=== PATIENT | male | born 1950 | race Caucasian/White ===

== ENCOUNTER 2020-08-26 03:28 | Emergency (ER) | payer MEDICARE, BC ==
[2020-08-26] MEDS ORDERED: Morphine 4 MG/ML Syringe IM ONE (03:42)
[2020-08-26] MEDS ORDERED: Morphine 4 MG/ML Syringe ONE (03:43)
--- NOTE | 2020-08-26 03:50 | EDM.PDOC ---
ED HPI GENERAL MEDICAL PROBLEM - General Chief Complaint: Genitourinary Problem Stated Complaint: urinary retention Time Seen by Provider: 08/26/20 03:35 Source of Information: Reports: Patient History Limitations: Reports: No Limitations - History of Present Illness INITIAL COMMENTS - FREE TEXT/NARRATIVE: Pt with urinary retention for past 3 hours Was able to void some urine but now cannot Has hx/o BPH and urinary issues in past On Flomax No fever No trauma No new meds Onset: Gradual Duration: Hour(s):, Getting Worse Location: Reports: Abdomen Bladder Pain Score (Numeric/FACES): 8 - Related Data Allergies Allergy/AdvReac Type Severity Reaction Status Date / Time No Known Drug Allergies Allergy Other Verified 08/26/20 03:29 Past Medical History Genitourinary History: Reports: Prostate Disorder, Retention, Urinary - Infectious Disease History Infectious Disease History: Reports: Chicken Pox, Measles, Mumps, Pertussis (Whooping Cough), Rubella - Past Surgical History Male Surgical History: Reports: Prostate Biopsy Musculoskeletal Surgical History: Reports: Hip Replacement, Other (See Below) Other Musculoskeletal Surgeries/Procedures:: bilateral hips replaced Social & Family History - Tobacco Use Smoking Status *Q: Never Smoker - Caffeine Use Caffeine Use: Reports: Coffee - Alcohol Use Days Per Week of Alcohol Use: 7 Number of Drinks Per Day: 3 Total Drinks Per Week: 21 - Recreational Drug Use Recreational Drug Use: No ED ROS GENERAL - Review of Systems Review Of Systems: See Below : Reports: Urinary Retention ED EXAM, RENAL/ - Physical Exam Exam: See Below General Appearance: Alert, WD/WN GI/Abdominal: Tender (Male) Exam: Suprapubic Fullness Course - Vital Signs Last Recorded V/S: Last Vital Signs Temp 98.7 F 08/26/20 03:31 Pulse 101 H 08/26/20 03:31 Resp 14 08/26/20 03:31 BP 216/112 H 08/26/20 03:31 Pulse Ox 100 08/26/20 03:31 - Re-Assessments/Exams Free Text/Narrative Re-Assessment/Exam: 08/26/20 03:47 Bladder scan > [address] urinary catheter D/W Dr Jasvir Moran [facility] Will accept in transfer Pt given Morphine 4 mg IM in ER Departure - Departure Time of Disposition: 03:50 Disposition: Home, Self-Care 01 Clinical Impression: Retention of urine - Discharge Information *PRESCRIPTION DRUG MONITORING PROGRAM REVIEWED*: Not Applicable *COPY OF PRESCRIPTION DRUG MONITORING REPORT IN PATIENT BALA: Not Applicable Instructions: Acute Urinary Retention, Male Additional Instructions: To [facility] ER via private vehicle Sepsis Event Note (ED) - Evaluation Sepsis Screening Result: No Definite Risk - Focused Exam Vital Signs: Vital Signs Temp Pulse Resp BP Pulse Ox 08/26/20 03:31 98.7 F 101 H 14 216/112 H 100
== END 2020-08-26 03:48 | disposition home or self-care (01) ==
LOC: LL.ED 03:28
DX: R33.9 Retention of urine, unspecified (principal)
CPT/HCPCS: 96372; 99284; J2270; 99283